=== PATIENT | female | born 1975 | race Caucasian/White ===

== ENCOUNTER 2018-07-06 16:29 | Emergency (ER) | payer MEDICAID ==
[~2018-07-06] VITALS: Ht 160 cm; Wt 82.0 kg
[2018-07-06 16:39] VITALS: Ht 160 cm; Wt 82.0 kg
[2018-07-06] MEDS ORDERED: KETOROLAC 30 MG INJ IM STA (17:05)
[2018-07-06] MEDS ORDERED: IBUP-1542 PO (17:34)
[2018-07-06] MEDS ORDERED: AMOX1TAB10 PO (17:35)
--- NOTE | 2018-07-06 17:44 | ERD ---
ER Documentation Chief Complaint Chief Complaint left lower jaw swollen x1 day, possible dental problem HPI Patient is a 42-year-old female who presents to the ER for concerns of left lower jaw pain x2 days. Patient states yesterday she started having some dental pain. She states this morning when she woke up she noticed that she had jaw swelling and worsening dental pain. Patient has no fevers or chills. Patient has no nausea or vomiting. Patient has no drooling. Patient states she has not seen a dentist in the last year. No recent travel. No sick contacts. ROS All systems reviewed and are negative except as per history of present illness. Medications Home Meds Active Scripts Amoxicillin/Potassium Clav (Amox-Clav 875-125 mg Tablet) 875-125 mg Tab, 1 TAB P O BID for 10 Days, #20 TAB Prov:JOSÉ MIGUEL KIDD PA-C 07/06/18 Ibuprofen* (Motrin*) 600 Mg Tab, 600 MG PO Q6, #30 TAB Prov:JOSÉ MIGUEL KIDD PA-C 07/06/18 Allergies Allergies: Coded Allergies: No Known Allergy (Unverified , 07/06/18) PMhx/Soc Medical and Surgical Hx: pt denies Medical Hx, pt denies Surgical Hx Hx Alcohol Use: No Hx Substance Use: No Hx Tobacco Use: No Smoking Status: Never smoker FmHx Family History: No diabetes Physical Exam Vitals Vital Signs Date Temp Pulse Resp B/P (MAP) Pulse Ox O2 O2 Flow FiO2 Time Delivery Rate 07/06/18 98.0 102 18 144/82 97 16:39 (102) Physical Exam GENERAL: Well-developed, well-nourished male. Appears in no acute distress. Speaking in full sentences. HEAD: Normocephalic, atraumatic. EYES: Pupils are equally reactive bilaterally. EOMs grossly intact. No conjunctival erythema. ENT: Moist mucous membranes. No uvula deviation. No kissing tonsils. Left lower molars noted to have numerous dental caries. Swelling noted to the left lower jaw. No fluctuance or induration. Affected area is without warmth or erythema. No trismus. No drooling. NECK: Supple. No meningismus. Normal range of motion of the neck. LUNG: Clear to auscultation bilaterally. No rhonchi, wheezing, rales or coarse breath sounds. HEART: Regular rate and rhythm. No murmurs, rubs or gallops. EXTREMITIES: Equal pulses bilaterally. No peripheral clubbing, cyanosis or edema. No unilateral leg swelling. NEUROLOGIC: Alert and oriented. Moving all four extremities without any difficu lty. Normal speech. Steady gait. SKIN: Normal color. Warm and dry. No rashes or lesions. Results 24 hrs Laboratory Tests Test 07/06/18 17:13 POC Beta HCG, Qualitative NEGATIVE Current Medications Medications Dose Sig/Alina Start Time Status Last (Trade) Ordered Route PRN Stop Time Admin Dose Reason Admin Ketorolac 30 mg ONCE STAT 07/06/18 DC 07/06/18 Tromethamine IM 17:05 17:20 (Toradol) 07/06/18 17:06 Procedures/MDM MEDICAL DECISION MAKING: This is a 42-year-old female presents here for concerns of right lower jaw s welling and pain x2 days.. Vital signs were reviewed. Patient was afebrile. Patient was not hypoxic. The patient did not have trismus, muffled voice, uvula deviation, unilateral tonsillar swelling, or drooling. No signs of neck swelling or hyperextension of the neck noted. On exam, patient has numerous dental caries. Poor dentition noted overall. Patient was given Toradol here and advised to follow-up with the dentist tomorrow. Referral information provided. Low suspicion for epiglottitis, strep pharyngitis, peritonsillar abscess, retropharyngeal abscess, Ludwigs angina, tooth fracture, bleeding dental socket, periodontal abscess, ulcerative gingivitis. Patient was nontoxic, non-opening prior to discharge. PRESCRIPTIONS: Augmentin, ibuprofen DISCHARGE: At this time, patient is stable for discharge and outpatient management. I have instructed the patient to see a dentist today or tomorrow. I have instructed the patient to promptly return to the ER at any time for any new or worsening symptoms including increased pain, fever, swelling, neck swelling, neck stiffness, drooling or difficulty breathing. The patient and/or family expressed understanding of and agreement with this plan. All questions were answered. Home care instructions were provided. Disclaimer: Inadvertent spelling and grammatical errors are likely due to EHR/dictation software use and do not reflect on the overall quality of patient care. Also, please note that the electronic time recorded on this note does not necessarily reflect the actual time of the patient encounter. Departure Diagnosis: Primary Impression: Pain, dental Additional Impression: Jaw swelling Condition: Fair Patient Instructions: Dental Abscess, Dental Pain Referrals: [facility] YOU HAVE RECEIVED A MEDICAL SCREENING EXAM AND THE RESULTS INDICATE THAT YOU DO NOT HAVE A CONDITION THAT REQUIRES URGENT TREATMENT IN THE EMERGENCY DEPARTMENT. FURTHER EVALUATION AND TREATMENT OF YOUR CONDITION CAN WAIT UNTIL YOU ARE SEEN IN YOUR DOCTORS OFFICE WITHIN THE NEXT 1-2 DAYS. IT IS YOUR RESPONSIBILITY TO MAKE AN APPOINTMENT FOR FOLOW-UP CARE. IF YOU HAVE A PRIMARY DOCTOR --you should call your primary doctor and schedule an appointment IF YOU DO NOT HAVE A PRIMARY DOCTOR YOU CAN CALL OUR PHYSICIAN REFERRAL HOTLINE AT IF YOU CAN NOT AFFORD TO SEE A PHYSICIAN YOU CAN CHOSE FROM THE FOLLOWING [facility] [address] [facility]. [facility] [address] [facility]. [facility] [address] [facility] [address] [facility] [address] [facility] [facility] [address] [facility]. [facility] YOU HAVE RECEIVED A MEDICAL SCREENING EXAM AND THE RESULTS INDICATE THAT YOU DO NOT HAVE A CONDITION THAT REQUIRES URGENT TREATMENT IN THE EMERGENCY DEPARTMENT. FURTHER EVALUATION AND TREATMENT OF YOUR CONDITION CAN WAIT UNTIL YOU ARE SEEN IN YOUR DOCTORS OFFICE WITHIN THE NEXT 1-2 DAYS. IT IS YOUR RESPONSIBILITY TO MAKE AN APPOINTMENT FOR FOLOW-UP CARE. IF YOU HAVE A PRIMARY DOCTOR --you should call your primary doctor and schedule and appointment IF YOU DO NOT HAVE A PRIMARY DOCTOR YOU CAN CALL OUR PHYSICIAN REFERRAL HOTLINE AT . IF YOU CAN NOT AFFORD TO SEE A PHYSICIAN YOU CAN CHOSE FROM THE FOLLOWING [facility] INSTITUTIONS: [facility] [address] [place] [address] [facility] [address] [place] [address] [facility] [address] [place] [address] [facility] D[facility] ([facility] walk in clinic) Additional Instructions: Llame al DENTISTA MAANA y kj patricia KAYLEY PARA DENTRO DE 1-2 AGUILAR.Dgale a la se cretaria que nosotros le instruimos hacer esta kayley.Avise o llame si ayers condicin se empeora antes de la kayley. Regresa aqui si peor o no mejor. JOSÉ MIGUEL KIDD PA-C July 06, 2018 17:44
[2018-07-06 17:49] VITALS: BP 135/76; PULSE 97; RESP 19
== END 2018-07-06 17:50 | disposition home or self-care (01) ==
LOC: FTE 16:29
DX: K08.89 Other specified disorders of teeth and supporting structures (principal)
CPT/HCPCS: 81025; 96372; J1885; Z7502